=== PATIENT | male | born 1985 | race Caucasian/White ===

== ENCOUNTER → 2024-04-23 07:30 | Outpatient (REF) | payer BC, SELFPAY | LOC: CLAB 07:30 | PROVIDERS: ATTENDING PHYSICIAN Otolaryngology | DX: N62 Hypertrophy of breast (principal) | CPT/HCPCS: 88305 ==

== ENCOUNTER 2024-05-07 19:51 | Day surgery (SDC) | payer BC, SELFPAY ==
[2024-05-07] VITALS (8 sets, daily range): BP systolic 50–146; BP diastolic 76–86
== END 2024-05-07 21:50 | disposition home or self-care (01) ==
LOC: SDS 19:51
PROVIDERS: ATTENDING PHYSICIAN Otolaryngology
DX: K91.872 Postprocedural seroma of a digestive system organ or structure following a digestive system procedure (principal); Z98.890 Other specified postprocedural states
CPT/HCPCS: 49406; 10140; C1729